=== PATIENT | male | born 1970 ===

== ENCOUNTER 2017-08-18 15:21 | Emergency (ER) | payer OTHER ==
[2017-08-18 15:42] VITALS: TEMP 98.6
--- NOTE | 2017-08-18 16:03 | ED PDOC ---
"Arrival/HPI - General Chief Complaint: Chest Pain Time Seen by Provider: 08/18/17 15:23 Historian: Patient - History of Present Illness Narrative History of Present Illness (Text): 08/18/17 16:04 46 y/o male, pmh including htn, non smoker, nkda, here with the daughter c/o elevated blood pressure and had chest pain about 3 days ago. Pt. stated that he was change to new BP meds lisinopril 5mg po qd and metoprolol 100mg po bid by his own pmd DR. Stephen Cummins, been checking the BP at home and noted to be systolic 200s and diastolic 100s which he started to become panic and developed subsequent chest pain 3 days ago. Pt. is here at the ER, concerning for the elevated blood pressure which he took his lisinopril 5mg po qd and metoprolol 100mg po today, no headache, no dizziness, no change in vision, no numbness or tingling, no rash, no other medical or psychological complaints. Past Medical History - Provider Review Nursing Documentation Reviewed: Yes - Cardiac Hx Hypertension: Yes - Pulmonary Hx Respiratory Disorders: No - Neurological Hx Neurological Disorder: No - HEENT Hx HEENT Disorder: No - Renal Hx Renal Disorder: No - Endocrine/Metabolic Hx Endocrine Disorders: No - Hematological/Oncological Hx Blood Disorders: No - Integumentary Hx Dermatological Disorder: No - Musculoskeletal/Rheumatological Hx Musculoskeletal Disorders: No - Gastrointestinal Hx Gastrointestinal Disorders: No - Genitourinary/Gynecological Hx Genitourinary Disorders: No - Psychiatric Hx Psychophysiologic Disorder: No Hx Substance Use: No Family/Social History - Physician Review Nursing Documentation Reviewed: Yes Family/Social History: Unknown Family HX Smoking Status: Never Smoked Hx Alcohol Use: No Hx Substance Use: No Allergies/Home Meds Allergies/Adverse Reactions: Allergies No Known Allergies Allergy (Verified 08/18/17 15:43) Home Medications: Home Meds Medication Instructions Recorded Confirmed Lisinopril [Zestril] 5 mg PO DAILY 08/18/17 08/18/17 Metoprolol Tartrate [Lopressor] 100 mg PO BID 08/18/17 08/18/17 Review of Systems - Review of Systems Constitutional: absent: Fatigue, Fevers Eyes: absent: Vision Changes ENT: absent: Hearing Changes Respiratory: absent: SOB, Cough Cardiovascular: absent: Chest Pain Gastrointestinal: absent: Abdominal Pain, Nausea, Vomiting Skin: absent: Rash, Pruritis Neurological: absent: Headache, Dizziness Psychiatric: absent: Anxiety, Depression, Suicidal Ideation Physical Exam Vital Signs Reviewed: Yes Vital Signs Temp Pulse Pulse Resp BP BP Pulse Ox 08/18/17 22:58 65 18 145/81 99 08/18/17 22:34 68 158/83 H 08/18/17 21:52 62 18 158/83 H 99 08/18/17 21:06 61 175/104 H 08/18/17 16:31 65 18 199/104 H 100 08/18/17 16:12 63 199/104 H 08/18/17 16:11 63 199/104 H 08/18/17 16:01 63 199/104 H 08/18/17 15:40 98.6 F 64 15 179/113 H 100 Temperature: Afebrile Blood Pressure: Hypertensive Pulse: Regular Respiratory Rate: Normal Appearance: Positive for: Well-Appearing, Non-Toxic, Comfortable Pain Distress: None Mental Status: Positive for: Alert and Oriented X 3 - Systems Exam Head: Present: Atraumatic, Normocephalic Pupils: Present: PERRL Extroacular Muscles: Present: EOMI Conjunctiva: Present: Normal Mouth: Present: Moist Mucous Membranes Neck: Present: Normal Range of Motion Respiratory/Chest: Present: Clear to Auscultation, Good Air Exchange. No: Respiratory Distress, Accessory Muscle Use, Wheezes, Decreased Breath Sounds, Rales, Retracting, Rhonchi, Tachypneic, Tender to Palpation Cardiovascular: Present: Regular Rate and Rhythm, Normal S1, S2. No: Murmurs Abdomen: Present: Normal Bowel Sounds. No: Tenderness, Distention, Peritoneal Signs, Rebound, Guarding Back: Present: Normal Inspection Upper Extremity: Present: Normal Inspection. No: Cyanosis, Edema Lower Extremity: Present: Normal Inspection. No: Edema Neurological: Present: GCS=15, CN II-XII Intact, Speech Normal, Motor Func Grossly Intact, Gait Normal, Memory Normal, Other (normal finger to nose test, normal heel to muñiz test. ) Skin: Present: Warm, Dry, Normal Color. No: Rashes Psychiatric: Present: Alert, Oriented x 3, Normal Insight, Normal Concentration Medical Decision Making ED Course and Treatment: 08/18/17 16:12 Differential: ACS vs. Hypertensive emergency vs. hypertensive urgency -BP repeated and confirmed by me which noted to be 199/104, lisinopril 10mg po and clonidine 0.1mg po ordered. -Labs/cardiac enzyme -ekg -Chest xray -Observe and reassess 08/18/17 16:46 -HEART score: 3 -EKG: SR @ 62 BPM with 1st degree heart block, no ST elevation or depression, T wave inversion noted on the lead III, no previous ekg available for comparison. -Labs are non-significant, normal bun/creatinine, negative troponin after 3 days of history of chest pain, BNP within normal limit -Dissection study ordered due to the elevated BP. 08/18/17 17:26 -Chest xray: No gross consolidation. Shallow lung volumes. Mild cardiomegaly. No suspect pulmonary venous congestion. Small left pleural effusion not excluded. (Versus summation of soft tissues) -CT chest added. 08/18/17 17:51 -CT Chest canceled as I received the call from CT that dissection study will include the CT chest. CT chest canceled. 08/18/17 21:45 -CT dissection study show: 1. There is no acute central pulmonary embolism. Evaluation of the peripheral pulmonary arteries is limited by poor enhancement. However, no definite filling defects suspicious for pulmonary emboli are identified. 2. Dependent groundglass density is identified within the lungs bilaterally. Otherwise, there is no confluent infiltrate. 3. A few small lung nodules are noted above. 4. Thyroid nodules are identified bilaterally. A right thyroid nodule measures 1.8 x 1.3 cm. There is an enhancing nodule within the left thyroid lobe measuring 2.4 x 2.0 cm. Nonemergent ultrasonography is recommended. 5. There is no aneurysm or dissection of the aorta. 6. Incidental/non-acute findings are described above. Plus IMPRESSION: 1. There is atherosclerosis and mild stenosis of the right common iliac artery. There is no aneurysm or dissection of the aorta. 2. There is mild distention of the appendix measuring 9 mm in diameter. There is no acute periappendiceal stranding. Clinical correlation is recommended. 3. There is hypodense fatty infiltration of the liver. 4. At the mid to lower pole of the right kidney, there is a 4.2 x 2.9 cm hypodense probable cyst. 08/18/17 22:01 -Case discussed with Dr. Tod Madden including labs/radiology studies, no coughing or cardiopulmonary symptoms at this point, recommend repeat troponin and if negative then the patient can be discharged home. -Pt.'s BP is controlled with clonidine temporarly, will add norvsac for his antihypertensive. 08/18/17 22:41 -Repeated EKG: SB@ 59 BPM, no acute ST or T wave changes, 1st degree block. -Repeated Troponin is negative. -All labs and CT results discussed with the patient and family, awared of the incidental findings. -Discharge home with norvsac, continue your blood pressure meds at home, copy of the CT given to the patient and family, avoid caffeine product, follow up with your own pmd and fingerprint classifier within 2 days, return to the ER for any new or worsening signs or symptoms. - Lab Interpretations Lab Results: 08/18/17 16:00 08/18/17 16:00 Lab Results 08/18/17 22:05: Lactate Dehydrogenase 389, Total Creatine Kinase 148, Troponin I < 0.01 08/18/17 16:00: WBC 9.6, RBC 5.48, Hgb 15.9, Hct 45.0, MCV 82.1, MCH 29.0, MCHC 35.3, RDW 12.9, Plt Count 268, MPV 10.4, Gran % 39.7 L, Lymph % (Auto) 49.8 H, Hooker % (Auto) 8.1 H, Eos % (Auto) 2.2, Baso % (Auto) 0.2, Gran # 3.79, Lymph # 4.8 H, Hooker # 0.8 H, Eos # 0.2, Baso # 0.02 08/18/17 16:00: Sodium 140, Potassium 3.7, Chloride 101, Carbon Dioxide 27, Anion Gap 15, BUN 15, Creatinine 0.9, Est GFR ( Amer) > 60, Est GFR (Non- Af Amer) > 60, Random Glucose 115 H, Calcium 10.5, Magnesium 2.1, Total Bilirubin 0.8, AST 50, ALT 83 H, Alkaline Phosphatase 91, Lactate Dehydrogenase 647, Total Creatine Kinase 199, Troponin I < 0.01, NT-Pro-B Natriuret Pep 43.0, Total Protein 8.9 H, Albumin 4.8, Globulin 4.1, Albumin/Globulin Ratio 1.2 - RAD Interpretation Radiology Orders: 08/18/17 15:57 CHEST PORTABLE [RAD] Stat 08/18/17 16:45 ANGIOGRAPHY DISECTION PROTOCOL [CT] Stat Chest xray: HISTORY: chest pain x 3 days COMPARISON: No prior. FINDINGS: LUNGS: No gross consolidation. Shallow lung volumes PLEURA: No significant right pleural effusion identified, ; small left pleural effusion not excluded. No pneumothorax apparent. CARDIOVASCULAR: Top-normal heart size central pulmonary vasculature probably within normal limits OSSEOUS STRUCTURES: No significant abnormalities. VISUALIZED UPPER ABDOMEN: Normal. OTHER FINDINGS: None. IMPRESSION: No gross consolidation. Shallow lung volumes. Mild cardiomegaly. No suspect pulmonary venous congestion. Small left pleural effusion not excluded. (Versus summation of soft tissues) CT Dissection: FINDINGS: Pulmonary arteries: There is no acute central pulmonary embolism. Evaluation of the peripheral pulmonary arteries is limited by poor enhancement. However, no definite filling defects suspicious for pulmonary emboli are identified. Aorta: There is no aneurysm or dissection of the aorta. Lungs: Dependent groundglass density is identified within the lungs bilaterally. Otherwise, there is no confluent infiltrate. Within the right upper lobe of the lung, there is a 2 mm hyperdense calcified lung nodule. Within the right lower lobe on series 4 image 45, there is a 5 mm perifissural nodule. There is a 4 mm perifissural nodule within the left lung on series 602 image 64. Pleural space: No significant effusion. No pneumothorax. Heart: No cardiomegaly. No significant pericardial effusion. No evidence of RV dysfunction. Mediastinum: There is soft tissue within the anterior mediastinum, suggestive of thymic tissue. Thyroid: Thyroid nodules are identified bilaterally. A right thyroid nodule measures 1.8 x 1.3 cm. There is an enhancing nodule within the left thyroid lobe measuring 2.4 x 2.0 cm. MIN REYNOSO | Final Radiology Report Page 2 of 3 Bones/joints: There is mild dextroscoliosis of the thoracolumbar spine. Hypertrophic degenerative changes are noted within the spine. Lymph nodes: Small mediastinal lymph nodes are identified, without significant mediastinal lymphadenopathy. There is no significant hilar lymphadenopathy. IMPRESSION: 1. There is no acute central pulmonary embolism. Evaluation of the peripheral pulmonary arteries is limited by poor enhancement. However, no definite filling defects suspicious for pulmonary emboli are identified. 2. Dependent groundglass density is identified within the lungs bilaterally. Otherwise, there is no confluent infiltrate. 3. A few small lung nodules are noted above. 4. Thyroid nodules are identified bilaterally. A right thyroid nodule measures 1.8 x 1.3 cm. There is an enhancing nodule within the left thyroid lobe measuring 2.4 x 2.0 cm. Nonemergent ultrasonography is recommended. 5. There is no aneurysm or dissection of the aorta. 6. Incidental/non-acute findings are described above. EXAM: CT Abdomen and Pelvis With Intravenous Contrast EXAM DATE/TIME: 08/18/2017 4:45 PM CLINICAL HISTORY: The patient age is 46 years old and is male; Pain; Other: Chest; Chest pain; Type not specified; Additional info: Chest pain and HTN x 3 days, no active chest pain Facility exam id and description: Ct_angiodisec angiography disection protocol COMPARISON: No relevant prior studies available. FINDINGS: ABDOMEN: Liver: There is hypodense fatty infiltration of the liver. Gallbladder and bile ducts: No calcified stones. No ductal dilation. Pancreas: Normal contour, without acute peripancreatic stranding. Spleen: No splenomegaly. Adrenals: No mass. Kidneys and ureters: There is no hydronephrosis bilaterally. At the mid to lower pole of the right kidney, there is a 4.2 x 2.9 cm hypodense probable cyst. Stomach and bowel: No obstruction. No significant mucosal thickening. Appendix: There is mild distention of the appendix measuring 9 mm in diameter. There is no acute periappendiceal stranding. PELVIS: Bladder: There is nonspecific wall thickening of the bladder. Reproductive: There is mild prominence of the prostate gland. ABDOMEN and PELVIS: Intraperitoneal space: No free air. Bones/joints: There is mild dextroscoliosis of the thoracolumbar spine. Hypertrophic degenerative changes are noted within the spine. Vasculature: There is atherosclerosis and mild stenosis of the right common iliac artery. There is no aneurysm or dissection of the aorta. Lymph nodes: There is no significant retroperitoneal or intrapelvic lymphadenopathy. IMPRESSION: 1. There is atherosclerosis and mild stenosis of the right common iliac artery. There is no aneurysm or dissection of the aorta. 2. There is mild distention of the appendix measuring 9 mm in diameter. There is no acute periappendiceal stranding. Clinical correlation is recommended. 3. There is hypodense fatty infiltration of the liver. 4. At the mid to lower pole of the right kidney, there is a 4.2 x 2.9 cm hypodense probable cyst. 5. Additional CT findings described above. Thank you for allowing us to participate in the care of your patient. Dictated and Authenticated by: Davon Johansen MD 08/18/2017 9:12 PM Eastern Time ([place] & [place]) Financial Services Manager: Radiologist - EKG Interpretation EKG Interpretation (Text): 08/18/17 23:00 SB@ 59 BPM, no acute ST or T wave changes, 1st degree block. Interpreted by ED Physician: Yes Type: 12 lead EKG - Medication Orders Current Medication Orders: Discontinued Medications Amlodipine Besylate (Norvasc) 5 mg PO STAT STA Stop: 08/18/17 22:07 Last Admin: 08/18/17 22:34 Dose: 5 mg MAR Pulse and Blood Pressure Document 08/18/17 22:34 RD (Rec: 08/18/17 22:34 RD [id number]) Pulse Pulse Rate (60-90) 68 Blood Pressure Blood Pressure (100/60-150/90) 158/83 Clonidine HCl (Catapres) 0.1 mg PO STAT STA Stop: 08/18/17 16:04 Last Admin: 08/18/17 16:11 Dose: 0.1 mg MAR Pulse and Blood Pressure Document 08/18/17 16:11 JACY (Rec: 08/18/17 16:11 JACY [id number]) Pulse Pulse Rate (60-90) 63 Blood Pressure Blood Pressure (100/60-150/90) 199/104 Clonidine HCl (Catapres) 0.1 mg PO STAT STA Stop: 08/18/17 21:00 Last Admin: 08/18/17 21:06 Dose: 0.1 mg MAR Pulse and Blood Pressure Document 08/18/17 21:06 RD (Rec: 08/18/17 21:07 RD [id number]) Pulse Pulse Rate (60-90) 61 Blood Pressure Blood Pressure (100/60-150/90) 175/104 Lisinopril (Zestril) 10 mg PO STAT STA Stop: 08/18/17 16:04 Last Admin: 08/18/17 16:12 Dose: 10 mg MAR Pulse and Blood Pressure Document 08/18/17 16:12 JACY (Rec: 08/18/17 16:12 JACY [id number]) Pulse Pulse Rate (60-90) 63 Blood Pressure Blood Pressure (100/60-150/90) 199/104 - PA / STENO TYPIST / Resident Statement MD/DO has reviewed & agrees with the documentation as recorded. Disposition/Present on Arrival - Present on Arrival Any Indicators Present on Arrival: No History of DVT/PE: No History of Uncontrolled Diabetes: No Urinary Catheter: No History of Decub. Ulcer: No History Surgical Site Infection Following: None - Disposition Have Diagnosis and Disposition been Completed?: Yes Diagnosis: HTN (hypertension), Abnormal CT scan Disposition: HOME/ ROUTINE Disposition Time: 22:05 Patient Plan: Discharge Condition: GOOD Additional Instructions: -Discharge home with norvsac, continue your blood pressure meds at home, copy of the CT given to the patient and family, avoid caffeine product, follow up with your own pmd and fingerprint classifier within 2 days, return to the ER for any new or worsening signs or symptoms. Prescriptions: amLODIPine [Norvasc] 5 mg PO DAILY #14 tab Referrals: [facility] at [facility] [place] [Outside] - Follow up with primary Troy Ghosh MD [Staff Provider] - Follow up with primary Maulik Charles MD [Staff Provider] - Follow up with primary Forms: WORK NOTE"
[2017-08-18 16:20] LABS: BASO # 0.02 K/mm3 (0.0-2.0); BASO % 0.2 % (0.0-3.0); EOS # 0.2 (0.0-0.7); EOS % 2.2 % (1.5-5.0); GRAN # 3.79 (1.4-6.5); GRAN % 39.7 % (50.0-68.0); LYMPH # 4.8 (1.2-3.4); LYMPH % 49.8 % (22.0-35.0); MEAN CELL VOLUME 82.1 fl (80.0-105.0); MEAN CORPUSCULAR HGB CONC 35.3 g/dl (31.0-37.0); MEAN PLATELET VOLUME 10.4 fl (7.0-11.0); MONO # 0.8 (0.1-0.6); MONO % 8.1 % (1.0-6.0); RED CELL DISTRIBUTION WIDTH 12.9 % (11.5-14.5); WHITE BLOOD COUNT 9.6 10^3/ul (4.5-11.0)
--- NOTE | 2017-08-18 16:27 | RAD ---
HISTORY: chest pain x 3 days COMPARISON: No prior. FINDINGS: LUNGS: No gross consolidation. Shallow lung volumes PLEURA: No significant right pleural effusion identified, ; small left pleural effusion not excluded. No pneumothorax apparent. CARDIOVASCULAR: Top-normal heart size central pulmonary vasculature probably within normal limits OSSEOUS STRUCTURES: No significant abnormalities. VISUALIZED UPPER ABDOMEN: Normal. OTHER FINDINGS: None. IMPRESSION: No gross consolidation. Shallow lung volumes. Mild cardiomegaly. No suspect pulmonary venous congestion. Small left pleural effusion not excluded. (Versus summation of soft tissues)
[2017-08-18 16:32] VITALS: RESP 18
[2017-08-18 16:33] LABS: ALB/GLOB RATIO 1.2 (1.1-1.8); ALKALINE PHOSPHATASE 91 U/L (38-126); ALT/SGPT 83 U/L (7-56); AST/SGOT 50 U/L (17-59); BILIRUBIN,TOTAL 0.8 mg/dL (0.2-1.3); BLOOD UREA NITROGEN 15 mg/dL (7-21); CALCIUM 10.5 mg/dL (8.4-10.5); CARBON DIOXIDE 27 mmol/L (21-33); CHLORIDE 101 mmol/L (98-107); GFR AFRICAN-AMERICAN > 60; GLUCOSE,RANDOM 115 mg/dL (70-110); MAGNESIUM 2.1 mg/dL (1.7-2.2); POTASSIUM 3.7 mmol/L (3.6-5.0); SODIUM 140 mmol/L (132-148); TOTAL PROTEIN 8.9 g/dL (5.8-8.3)
[2017-08-18 16:40] LABS: TROPONIN I < 0.01 ng/mL
--- NOTE | 2017-08-18 21:12 | CT ---
EXAM: CT Chest With Intravenous Contrast CLINICAL HISTORY: The patient age is 46 years old and is male; Pain; Other: Chest; Chest pain; Type not specified; Additional info: Chest pain and HTN x 3 days, no active chest pain Facility exam id and description: Ct angiodisec angiography disection protocol TECHNIQUE: Axial computed tomography images of the chest with intravenous contrast during the arterial phase of enhancement. All CT scans at this facility use one or more dose reduction techniques, viz.: automated exposure control; ma/kV adjustment per patient size (including targeted exams where dose is matched to indication; i.e. head); or iterative reconstruction technique. Coronal and sagittal reformatted images were created and reviewed. CONTRAST: 150 mL of omni 350 administered intravenously. COMPARISON: No relevant prior studies available. FINDINGS: Pulmonary arteries: There is no acute central pulmonary embolism. Evaluation of the peripheral pulmonary arteries is limited by poor enhancement. However, no definite filling defects suspicious for pulmonary emboli are identified. Aorta: There is no aneurysm or dissection of the aorta. Lungs: Dependent groundglass density is identified within the lungs bilaterally. Otherwise, there is no confluent infiltrate. Within the right upper lobe of the lung, there is a 2 mm hyperdense calcified lung nodule. Within the right lower lobe on series 4 image 45, there is a 5 mm perifissural nodule. There is a 4 mm perifissural nodule within the left lung on series 602 image 64. Pleural space: No significant effusion. No pneumothorax. Heart: No cardiomegaly. No significant pericardial effusion. No evidence of RV dysfunction. Mediastinum: There is soft tissue within the anterior mediastinum, suggestive of thymic tissue. Thyroid: Thyroid nodules are identified bilaterally. A right thyroid nodule measures 1.8 x 1.3 cm. There is an enhancing nodule within the left thyroid lobe measuring 2.4 x 2.0 cm. Bones/joints: There is mild dextroscoliosis of the thoracolumbar spine. Hypertrophic degenerative changes are noted within the spine. Lymph nodes: Small mediastinal lymph nodes are identified, without significant mediastinal lymphadenopathy. There is no significant hilar lymphadenopathy. IMPRESSION: 1. There is no acute central pulmonary embolism. Evaluation of the peripheral pulmonary arteries is limited by poor enhancement. However, no definite filling defects suspicious for pulmonary emboli are identified. 2. Dependent groundglass density is identified within the lungs bilaterally. Otherwise, there is no confluent infiltrate. 3. A few small lung nodules are noted above. 4. Thyroid nodules are identified bilaterally. A right thyroid nodule measures 1.8 x 1.3 cm. There is an enhancing nodule within the left thyroid lobe measuring 2.4 x 2.0 cm. Nonemergent ultrasonography is recommended. 5. There is no aneurysm or dissection of the aorta. 6. Incidental/non-acute findings are described above. EXAM: CT Abdomen and Pelvis With Intravenous Contrast EXAM DATE/TIME: 08/18/2017 4:45 PM CLINICAL HISTORY: The patient age is 46 years old and is male; Pain; Other: Chest; Chest pain; Type not specified; Additional info: Chest pain and HTN x 3 days, no active chest pain Facility exam id and description: Ct angiodisec angiography disection protocol TECHNIQUE: Axial computed tomography images of the abdomen and pelvis with intravenous contrast. All CT scans at this facility use one or more dose reduction techniques, viz.: automated exposure control; ma/kV adjustment per patient size (including targeted exams where dose is matched to indication; i.e. head); or iterative reconstruction technique. Coronal and sagittal reformatted images were created and reviewed. CONTRAST: 150 mL of omni 350 administered intravenously. COMPARISON: No relevant prior studies available. FINDINGS: ABDOMEN: Liver: There is hypodense fatty infiltration of the liver. Gallbladder and bile ducts: No calcified stones. No ductal dilation. Pancreas: Normal contour, without acute peripancreatic stranding. Spleen: No splenomegaly. Adrenals: No mass. Kidneys and ureters: There is no hydronephrosis bilaterally. At the mid to lower pole of the right kidney, there is a 4.2 x 2.9 cm hypodense probable cyst. Stomach and bowel: No obstruction. No significant mucosal thickening. Appendix: There is mild distention of the appendix measuring 9 mm in diameter. There is no acute periappendiceal stranding. PELVIS: Bladder: There is nonspecific wall thickening of the bladder. Reproductive: There is mild prominence of the prostate gland. ABDOMEN and PELVIS: Intraperitoneal space: No free air. Bones/joints: There is mild dextroscoliosis of the thoracolumbar spine. Hypertrophic degenerative changes are noted within the spine. Vasculature: There is atherosclerosis and mild stenosis of the right common iliac artery. There is no aneurysm or dissection of the aorta. Lymph nodes: There is no significant retroperitoneal or intrapelvic lymphadenopathy. IMPRESSION: 1. There is atherosclerosis and mild stenosis of the right common iliac artery. There is no aneurysm or dissection of the aorta. 2. There is mild distention of the appendix measuring 9 mm in diameter. There is no acute periappendiceal stranding. Clinical correlation is recommended. 3. There is hypodense fatty infiltration of the liver. 4. At the mid to lower pole of the right kidney, there is a 4.2 x 2.9 cm hypodense probable cyst. 5. Additional CT findings described above.
[2017-08-18 21:52] VITALS: O2SAT 99
[2017-08-18 22:35] LABS: TROPONIN I < 0.01 ng/mL
[2017-08-18 23:00] VITALS: BP 145/81; PULSE 65
--- NOTE | 2017-08-19 10:10 | CARD ---
APPROVED REPORT EKG Measurement Heart [id number] <Conclusion> Sinus rhythm with 1st degree AV block Left axis deviation/ LAHB PRWP Incomplete right bundle branch block Inferior infarct, age undetermined NSSTW changes
--- NOTE | 2017-08-19 10:24 | CARD ---
APPROVED REPORT EKG Measurement Heart [id number] <Conclusion> Sinus bradycardia with 1st degree AV block Left axis deviation RSR' or QR pattern in V1 suggests right ventricular conduction delay Inferior infarct, age undetermined T waves now biphasic V 4 - 6, l,L c/w earlier ECG
== END 2017-08-18 22:58 | disposition home or self-care (01) ==
LOC: ED 15:21
DX: I10 Essential (primary) hypertension (principal); R94.8 Abnormal results of function studies of other organs and systems
CPT/HCPCS: 71010; 71275; 74175; 80053; 82550; 83615; 83735; 83880; 84484; 85025; 93005; 99283; Q9967